=== PATIENT | female | born 1990 | race African-American/Black ===

== ENCOUNTER 2021-01-27 15:16 | Emergency (ER) | payer OTHER ==
--- OUTSIDE RECORDS SUMMARY | 2021-01-27 15:24 | XMS REPORT | Continuity of Care Document ---
:1990 Author Organization [facility] t Address [address] [place] [address] Care Team Providers Name Role Phone Srinath HENDRICKS, Ivis Primary Care Physician Benjamin HENDRICKS, Adin Zeng Attending Clinician Payers Payer Name Policy Type Policy Number Effective Date Expiration Date S [place] [id number] 2016 [facility] [id number] /07/2015-Prese ntHMO Problems This patient has no known problems. Allergies, Adverse Reactions, Alerts This patient has no known allergies or adverse reactions. Social History Social Habit Start Date Stop Date Quantity Comments Source History [facility] Alcohol Binge History [facility] Alcohol Std Drinks History [facility] 2018-08-24 2018-08-24 1 [place] [facility] Alcohol Frequency 00:00:00 00:00:00 Tobacco use and 2018-08-23 2018-08-23 Never used [facility] ethodist exposure 00:00:00 00:00:00 Alcohol intake 2018-08-23 2018-08-23 Current [facility] thodist 00:00:00 00:00:00 non-drinker of alcohol (finding) Sex Ass[birth year] [facility] ethodist 00:00:00 00:00:00 Smoking Status Start Date Stop Date Source Never smoker [place] [facility] t Medications Ordered Filled Start Stop Current Ordering Indication Dosage Frequency Signature Comments Components Source Medication Medication Date Date Medication? Clinician (SIG) Name Name HYDROcodone 0 2019- No acute pain 1{tbl} Q6H Take 1 [place] -acetaminop 04-12 tablet by Me thodi hen ([place]) 00:00: 23:[address] 10-325 mg 00 :00 every 6 per tablet (six) hours as needed for moderate pain for up to 7 days .acute pain. Max Daily Amount: 4 tablets Vital Signs Vital Name Observation Time Observation Value Comments Source Systolic blood 2020-04-12 03:30:00 102 mm[Hg] [facility] pressure Diastolic blood 2020-04-12 03:30:00 55 mm[Hg] [facility] pressure Heart rate 2020-04-12 03:30:00 76 /min Raciel Mcguire Respiratory rate 2020-04-12 03:30:00 16 /min [place] [facility] Oxygen saturation in 2020-04-12 03:30:00 100 /min Raciel Mcguire Arterial blood by Pulse oximetry Body temperature 2020-04-11 23:54:12 36.72 Dorothy [place] [facility] Procedures Procedure Date / Time Performed Performing Clinician Sourc e RH TYPE 2020-04-12 01:17:00 Adin Alexander LACTIC ACID LEVEL, SEPSIS 2020-04-12 01:16:00 Adin Alexander - NOW AND REPEAT 2X EVERY 3 HOURS HC COMPLETE BLD COUNT 2020-04-12 01:16:00 Adin Alexander W/AUTO DIFF COMPREHENSIVE METABOLIC 2020-04-12 01:16:00 Adin Alexander PANEL HCG QUANTITATIVE, SERUM 2020-04-12 01:16:00 Adin Alexander ESTIMATED GFR 2020-04-12 01:16:00 Adin Alexander SMEAR REVIEW 2020-04-12 01:16:00 Adin Alexander LIPASE LEVEL 2020-04-12 01:16:00 Adin Alexander US SINGLE LESS 2020-04-12 01:15:36 Adin Alexander THAN 14 WEEKS Plan of Care Planned Activity Planned Date Details Comments Source Future Scheduled 2021-02-22 INFLUENZA VACCINE [facility] [place] [facility] 00:00:00 [code = INFLUENZA VACCINE] Future Scheduled 2013-02-04 Screening for [facility] Test 00:00:00 malignant neoplasm of cervix (procedure) [code = 190444911] Future Scheduled 2010-02-04 Hepatitis C [place] [facility] Test 00:00:00 screening (procedure) [code = 309872949] Future Scheduled 2004 COVID-19 VACCINE (1) Melissa [facility] Test 00:00:00 [code = COVID-19 VACCINE (1)] Encounters Start End Encounter Admission Attending Care Care Encounter Source Date/Time Date/Time Type Type Clinicians Facility Department ID 2020-04-11 2020-04-12 [facility] 064 [id number] [place] 00:00:00 00:00:[address] AD[address] 2019-08-16 2019-08-16 Emergency E [facility] [id number] 20:39:00 20:39:00 [facility] 2019-08-06 2019-08-06 Emergency E [facility] [id number] 11:06:00 11:06:00 [facility] 2019-03-27 2019-03-27 Emergency E [facility] [id number] 09:22:00 09:22:00 [facility] Results Test Description Test Time Test Comments Results Result [facility] Comments US 2020-03-25 [facility] [place] Single Less Than 9 Radiology Results M ethodist 14 Weeks 01:43:47 04/12/2020 1:46 AM CDT EXAM: US SINGLE LESS THAN 14 WEEKSCLINICAL INDICATIONS: Vaginal bleeding TECHNIQUE: Pelvic ultrasound performed. Transabdominal images are obtained.COMPARISON : NoneIMPRESSION: 1.The uterus measures 11.1 x 5.1 x 7.2 cm. The endometrial stripe measures 11.6 mm. A hypoechoic lesion along the posterior uterine myometrium measures 2.2 x 1.4 x 2.2 cm, suggestive of a fibroid. No intrauterine or extrauterine gestational sac is identified. Findings may represent a missed . Ectopic cannot be entirely excluded. Recommend trending beta hCG and possible follow-up pelvic ultrasound in 1-2 weeks.2.The right ovary demonstrates intraovarian Doppler flow and measures 2.1 x 1.9 x 1.7 cm. No suspicious ovarian lesion is identified.3.The left ovary demonstrates intraovarian Doppler flow and measures 2.2 x 3.3 x 2.0 cm. A cyst measures 1.7 x 1.5 cm.4.No free fluid seen in the pelvis.[facility]-[id number] LD
--- NOTE | 2021-01-27 17:00 | ER ---
Nurse's Notes [facility] Name: Jenny Morris Age: 30 yrs Sex: Female : 1990 Arrival Date: 01/27/2021 Time: 15:19 Bed 13 Private MD: Diagnosis: Presentation: 01/27 15:29 Chief complaint: Patient states: epigastric pain, diarrhea with mucous and abd painx 3 sv weeks. Has traveled [facility] [place]Note 2[place] recently. Coronavirus screen: Client indicates they have traveled out of the [place] in the last 14 days. Ebola Screen: No symptoms or risks identified at this time. Risk Assessment: Do you want to hurt yourself or someone else? Patient reports no desire to harm self or others. Onset of symptoms was December 2020. 15:29 Method Of Arrival: Ambulatory sv 15:29 Acuity: ALICIA 3 sv 15:32 Initial Sepsis Screen: Does the patient meet any 2 criteria? No. Patient's initial sv sepsis screen is negative. Does the patient have a suspected source of infection? No. Patient's initial sepsis screen is negative. Triage Assessment: 15:33 General: Appears in no apparent distress. comfortable, Behavior is calm, cooperative, sv appropriate for age. Pain: Complains of pain in abdomen. Neuro: Level of Consciousness is awake, alert, obeys commands, Oriented to person, place, time, situation, Gait is steady. Respiratory: Respiratory effort is even, unlabored. Historical: - Allergies: 15:31 No Known Allergies; sv - PMHx: 15:31 None; sv - PSHx: 15:31 Cholecystectomy; sv - Immunization history:: Adult Immunizations up to date, Client reports having NOT received the Covid vaccine. - Social history:: Smoking status: Patient denies any tobacco usage or history of. Vital Signs: 15:32 BP 128 / 84; Pulse 89; Resp 16; Temp 98; Pulse Ox 99% ; Weight 78.02 kg; Height 5 ft. 4 sv in. (162.56 cm); 15:32 Body Mass Index 29.52 (78.02 kg, 162.56 cm) sv ED Course: 15:19 Patient arrived in ED. wm 15:29 Arm band placed on. sv 15:31 Triage completed. sv 16:58 Ashleigh Messer, RN is Primary Nurse. ph Administered Medications: No medications were administered Outcome: 16:58 Patient left the ED. Signatures: Velia Shaffer RN RN sv Ashleigh Messer RN RN Liliya Wheatley Corrections: (The following items were deleted from the chart) 15:33 15:29 Chief complaint: Patient states: epigastric pain, diarrhea and abd painx 3 weeks. sv Has traveled [facility] [place]Note 2[place] recently 15:33 15:32 Pulse 89bpm; Resp 16bpm; Pulse Ox 99%; Temp 98F; 78.02 kg; Height 5 ft. 4 in.; BMI: 29.5; sv
[2021-01-27 17:14] VITALS: BP 128/84; TEMP 98; O2SAT 99
== END 2021-01-27 16:58 | disposition left against medical advice (07) ==
LOC: ER 15:16
DX: Z53.21 Procedure and treatment not carried out due to patient leaving prior to being seen by health care provider (principal)
CPT/HCPCS: 99281